=== PATIENT | male | born 1960 | race Caucasian/White ===

== ENCOUNTER 2018-10-13 16:12 | Inpatient (IN) | payer OTHER ==
[2018-10-13] MEDS ORDERED: morphine 4 MG/ML VIAL IV (16:13)
[2018-10-13] MEDS: FUROSEMIDE 20 MG INJ IV (16:13)
[2018-10-13] MEDS: ASPIRIN 325 MG TAB PO (16:13)
[2018-10-13] MEDS: ONDANSETRON 4 MG INJ IV (16:13)
[2018-10-13] MEDS: NITROGLYCERIN 50 MG/D5W (PMX) 250 ML IV (16:16)
[2018-10-13] MEDS: ALBUTEROL 0.5% (NEB) 2.5 MG/0.5 ML AMP INH (16:22)
[2018-10-13 16:23] LABS: WHITE BLOOD COUNT 28.8 10^3/ul (4.8-10.8)
[2018-10-13 16:23] LABS: ABNORMAL IP MESSAGE 1; HEMATOCRIT 37.2 % (42.0-52.0); HEMOGLOBIN 12.4 g/dl (14.0-18.0); MEAN CORPUSCULAR HEMOGLOBIN 32.7 pg (29.0-33.0); MEAN CORPUSCULAR HGB CONC 33.3 g/dl (32.0-37.0); MEAN CORPUSCULAR VOLUME 98.2 fl (82.0-101.0); MEAN PLATELET VOLUME 8.9 fl (7.4-10.4); PLATELET COUNT 290 10^3/UL (140-415); POSITIVE DIFF @See below; RED BLOOD COUNT 3.79 10^6/ul (4.70-6.10); RED CELL DISTRIBUTION WIDTH 11.9 % (11.5-14.5)
[2018-10-13] MEDS: IPRATROPIUM (NEB) 0.5 MG/2.5 ML AMP INH (16:23)
[2018-10-13 16:25] LABS: ADD MAN DIFF? YES
[2018-10-13] MEDS ORDERED: NITROGLYCERIN (SL) 0.4 MG TAB SL (16:30)
[2018-10-13] MEDS: SUCCINYLCHOLINE CHLORIDE 100 MG/5 ML SYG IV (16:31)
[2018-10-13] MEDS: ETOMIDATE 20 MG INJ IV (16:31)
[2018-10-13] MEDS ORDERED: PROPOFOL 100 ML (16:39)
[2018-10-13] MEDS ORDERED: PROPOFOL 100 ML IV (16:40)
[2018-10-13 16:43] LABS: INR 0.97; PARTIAL THROMBOPLASTIN TIME 23.3 Sec (23.0-35.0)
[2018-10-13] MEDS: SOD CHLORIDE 0.9% 1,000 ML IV (16:44)
[2018-10-13 16:45] LABS: ALANINE AMINOTRANSFERASE 50 IU/L (13-69); ALBUMIN 3.5 g/dl (3.3-4.9); ALKALINE PHOSPHATASE 90 IU/L (42-121); ANION GAP 8 (5-13); ASPARTATE AMINO TRANSFERASE 58 IU/L (15-46); BAND NEUTROPHILS #M 0.2 10^3/ul (0.0-0.6); BAND NEUTROPHILS % (M) 1 % (0-4); BILIRUBIN,INDIRECT 1.8 mg/dl (0-1.1); BILIRUBIN,TOTAL 1.8 mg/dl (0.2-1.3); BLOOD UREA NITROGEN 26 mg/dl (7-20); CALCIUM 8.5 mg/dl (8.4-10.2); CARBON DIOXIDE 37 mmol/L (21-31); CHLORIDE 95 mmol/L (97-110); CREATININE 0.82 mg/dl (0.61-1.24); Estimated GFR > 60 mL/min (>60); GLUCOSE 195 mg/dl (70-220); LYMPHOCYTES #M 1.7 10^3/ul (0.8-2.9); LYMPHOCYTES % (M) 6 % (15-51); PLATELET ESTIMATE NORMAL; POTASSIUM 4.8 mmol/L (3.5-5.1); SEG NEUT #M 26.8 10^3/ul (1.6-7.5); SEGMENTED NEUTROPHILS (M) % 93 % (39-77); SMUDGE%M 6 % (0-0); SODIUM 140 mmol/L (135-144); TOTAL PROTEIN 6.4 g/dl (6.1-8.1)
[2018-10-13] MEDS ORDERED: FENTAnyl 50 MCG/ML VIAL (16:49)
[2018-10-13] MEDS: MAGNESIUM SULFATE 2 GM/50 ML 50 ML IVPB (16:52)
[2018-10-13] MEDS: DEXAMETHASONE 10 MG/ML 1 ML INJ IV (16:53)
[2018-10-13] MEDS ORDERED: MIDAZOLAM 1 MG/ML 2 ML INJ (16:55)
[2018-10-13 16:57] LABS: B-TYPE NATRIURETIC PEPTIDE 1930 PG/ML (0-125); TROPONIN-I 0.047 ng/ml (0.000-0.120)
[2018-10-13 17:01] LABS: CREATINE KINASE 394 IU/L (23-200)
[2018-10-13] MEDS ORDERED: NORepinephrine 8MG/250 ML (PMX 250 ML (17:05)
[2018-10-13] MEDS: FENTAnyl 50 MCG/ML VIAL IV ×2 (17:06→18:34)
[2018-10-13] MEDS: MIDAZOLAM 1 MG/ML 2 ML INJ IV ×3 (17:06→18:34)
[2018-10-13 17:14] LABS: CK INDEX 1.7; CK-MB 6.57 ng/ml (0.0-2.4); TROPONIN-I 0.046 ng/ml (0.000-0.120)
[2018-10-13] MEDS: FENTAnyl (DRIP) 1000 mcg/100mL 100 ML IV (17:19)
[2018-10-13] MEDS: MIDAZOLAM (DRIP) 50 mg/50 mL 50 ML IV ×2 (17:25→21:35)
[2018-10-13] MEDS: NORepinephrine 8MG/250 ML (PMX 250 ML IV (17:30)
[2018-10-13] MEDS: SODIUM CHLORIDE 0.9% 1L BAG IV* (17:30)
[2018-10-13] MEDS: CEFEPIME 2GM/50 ML (PMX) 50 ML IVPB (17:44)
[2018-10-13] MEDS: VANCOMYCIN 1 GM (PMX) 250 ML IVPB (18:22)
[2018-10-13] MEDS ORDERED: MIDAZOLAM 1 MG/ML 5 ML INJ IV (18:30)
[2018-10-13 18:49] LABS: AADO2 Arterial 212.9 mmHg (7.0-24.0); Allen Test ACCEPTAB; Arterial Base Excess -0.5 mmol/L (-3.0-3); Arterial COHb 0.3 % (0.0-3.0); Arterial Fraction of Oxyhgb 98.4 % (93.0-99.0); Arterial MetHb 0.3 % (0.0-1.5); Arterial pCO2 67.2 mmhg (35-45); MODE VENT - AC; Site Left Radial
[2018-10-13 19:26] LABS: LACTIC ACID 2.4 mmol/L (0.5-2.0)
[2018-10-13] MEDS ORDERED: NACL 0.9% 3 ML SYG IV (19:30)
[2018-10-13 19:52] LABS: AADO2 Arterial 108.6 mmHg (7.0-24.0); Arterial Base Excess 1.8 mmol/L (-3.0-3); Arterial COHb 0.3 % (0.0-3.0); Arterial Fraction of Oxyhgb 96.4 % (93.0-99.0); Arterial HCO3 28.6 mmol/L (22.0-26.0); Arterial MetHb 0.3 % (0.0-1.5); Arterial pCO2 55.3 mmhg (35-45); MODE VENT - AC; Site Right Brachial
[2018-10-13] MEDS: LEVOFLOXACIN 750MG/D5W (PMX) 150 ML IVPB (20:04)
[2018-10-13] MEDS ORDERED: SUCCINYLCHOLINE CHLORIDE 100 MG/5 ML SYG IV (21:00)
[2018-10-13] MEDS ORDERED: ALBUTEROL/IPRATROPIUM (NEB) 3 ML AMP HHN (21:00)
[2018-10-13] MEDS ORDERED: NITROGLYCERIN (SL) 0.4 MG TAB (21:00)
[2018-10-13] MEDS ORDERED: ETOMIDATE 20 MG INJ (21:00)
[2018-10-13] MEDS: METHYLPREDNISOLONE 40 MG INJ IV (21:35)
[2018-10-13] MEDS: IPRATROPIUM (HFA) 12.9 GM INHALER INH (21:49)
[2018-10-13] MEDS: ALBUTEROL HFA 8 GM INHALER INH (21:49)
[2018-10-14 00:06] LABS: BASOPHIL # 0.1 10^3/ul (0.0-0.1); BASOPHILS % 0.2 % (0.0-2.0); EOSINOPHILS % 0.1 % (0.0-7.0); LYMPHOCYTES # 1.7 10^3/ul (0.8-2.9); LYMPHOCYTES % 5.9 % (15.0-51.0); MONOCYTE # 1.1 10^3/ul (0.3-0.9); MONOCYTES % 3.6 % (0.0-11.0); NEUTROPHIL # 25.7 10^3/ul (1.6-7.5)
[2018-10-14] MEDS: FENTAnyl (DRIP) 1000 mcg/100mL 100 ML IV ×3 (00:45→19:56)
[2018-10-14] MEDS: NORepinephrine 8MG/250 ML (PMX 250 ML IV ×2 (00:57→11:09)
[2018-10-14] MEDS: IPRATROPIUM (HFA) 12.9 GM INHALER INH ×6 (01:10→21:29)
[2018-10-14] MEDS: ALBUTEROL HFA 8 GM INHALER INH ×3 (01:10→09:06)
[2018-10-14 01:31] LABS: LACTIC ACID 1.1 mmol/L (0.5-2.0)
[2018-10-14 01:32] LABS: CREATINE KINASE 299 IU/L (23-200)
[2018-10-14 01:32] LABS: MAGNESIUM 2.6 mg/dl (1.7-2.5)
[2018-10-14 01:46] LABS: CK INDEX 3.3
[2018-10-14 01:47] LABS: CK-MB 9.72 ng/ml (0.0-2.4)
[2018-10-14] MEDS: PROPOFOL 100 ML IV ×2 (03:00→13:06)
[2018-10-14] MEDS: MIDAZOLAM (DRIP) 50 mg/50 mL 50 ML IV ×4 (03:59→19:53)
[2018-10-14] MEDS: METHYLPREDNISOLONE 40 MG INJ IV ×3 (05:21→23:17)
[2018-10-14] MEDS: FUROSEMIDE 20 MG INJ IV ×2 (05:21→18:03)
[2018-10-14 05:58] LABS: ADD MAN DIFF? NO
[2018-10-14 06:06] LABS: ABNORMAL IP MESSAGE 1; BASOPHILS % 0.1 % (0.0-2.0); HEMATOCRIT 31.9 % (42.0-52.0); HEMOGLOBIN 10.4 g/dl (14.0-18.0); LYMPHOCYTES # 0.3 10^3/ul (0.8-2.9); LYMPHOCYTES % 0.8 % (15.0-51.0); MEAN CORPUSCULAR HEMOGLOBIN 32.6 pg (29.0-33.0); MEAN CORPUSCULAR HGB CONC 32.6 g/dl (32.0-37.0); MEAN PLATELET VOLUME 9.3 fl (7.4-10.4); MONOCYTE # 0.4 10^3/ul (0.3-0.9); MONOCYTES % 1.3 % (0.0-11.0); NEUTROPHIL # 29.3 10^3/ul (1.6-7.5); NEUTROPHILS % 96.5 % (39.0-77.0); PLATELET COUNT 246 10^3/UL (140-415); POSITIVE DIFF @See below; RED BLOOD COUNT 3.19 10^6/ul (4.70-6.10); RED CELL DISTRIBUTION WIDTH 12.2 % (11.5-14.5)
[2018-10-14 06:06] LABS: WHITE BLOOD COUNT 30.4 10^3/ul (4.8-10.8)
[2018-10-14 06:43] LABS: TROPONIN-I 0.054 ng/ml (0.000-0.120)
[2018-10-14 06:44] LABS: CK-MB 8.46 ng/ml (0.0-2.4)
[2018-10-14 06:47] LABS: ALANINE AMINOTRANSFERASE 74 IU/L (13-69); ALBUMIN 2.7 g/dl (3.3-4.9); ALBUMIN/GLOBULIN RATIO 1.35; ALKALINE PHOSPHATASE 76 IU/L (42-121); ANION GAP 9 (5-13); ASPARTATE AMINO TRANSFERASE 45 IU/L (15-46); BLOOD UREA NITROGEN 24 mg/dl (7-20); CALCIUM 7.9 mg/dl (8.4-10.2); CARBON DIOXIDE 27 mmol/L (21-31); CHLORIDE 103 mmol/L (97-110); Estimated GFR > 60 mL/min (>60); GLUCOSE 222 mg/dl (70-220); POTASSIUM 4.8 mmol/L (3.5-5.1); SODIUM 139 mmol/L (135-144); TOTAL PROTEIN 4.7 g/dl (6.1-8.1)
[2018-10-14 06:57] LABS: CK INDEX 3.6; CREATINE KINASE 233 IU/L (23-200)
[2018-10-14 07:45] LABS: HEMOGLOBIN A1C 8.1 % (0-5.9)
[2018-10-14 07:55] LABS: AADO2 Arterial 89.8 mmHg (7.0-24.0); Allen Test ACCEPTAB; Arterial Base Excess 2.1 mmol/L (-3.0-3); Arterial Blood Gas Oxygen Sat 91.4 mmHG (95.0-98.0); Arterial COHb 0.3 % (0.0-3.0); Arterial Fraction of Oxyhgb 90.8 % (93.0-99.0); Arterial MetHb 0.4 % (0.0-1.5); Arterial pCO2 49.2 mmhg (35-45); MODE VENT - AC; Site Left Radial
[2018-10-14] MEDS ORDERED: ALBUTEROL HFA 8 GM INHALER INH (11:00)
[2018-10-14] MEDS ORDERED: VANCOMYCIN IV PER PHARMACY XX (11:30)
[2018-10-14] MEDS: CEFEPIME 2GM/50 ML (PMX) 50 ML IVPB ×2 (13:38→21:27)
[2018-10-14 14:18] LABS: ADD UMIC NO; UR ASCORBIC ACID NEGATIVE (NEGATIVE); UR BILIRUBIN (Dip) NEGATIVE (NEGATIVE); UR BLOOD (Dip) NEGATIVE (NEGATIVE); UR CLARITY SLIGHTLY CLOUDY (CLEAR); UR COLOR YELLOW (YELLOW); UR GLUCOSE (Dip) NEGATIVE (NEGATIVE); UR KETONES (Dip) 1+ mg/dL (NEGATIVE); UR LEUKOCYTE ESTERASE (Dip) NEGATIVE Leu/ul (NEGATIVE); UR MUCUS FEW /HPF (NONE SEEN); UR NITRITE (Dip) NEGATIVE (NEGATIVE); UR RBC 0 /HPF (0-5); UR SPECIFIC GRAVITY (Dip) 1.017 (1.003-1.030); UR TOTAL PROTEIN (Dip) NEGATIVE (NEGATIVE); UR UROBILINOGEN (Dip) NEGATIVE (NEGATIVE); UR WBC 0 /HPF (0-5)
[2018-10-14] MEDS ORDERED: GLUCAGON 1 MG INJ IM (15:00)
[2018-10-14] MEDS ORDERED: DEXTROSE 50% 50 ML SYRINGE IV ×2 (15:00)
[2018-10-14] MEDS ORDERED: GLUCOSE GEL 15 GRAM TUBE BUCCAL (15:00)
[2018-10-14] MEDS ORDERED: GLUCOSE GEL 15 GRAM TUBE PO ×2 (15:00)
[2018-10-14] MEDS: VANCOMYCIN HCL 1.25 GM in SOD CHLORIDE 0.9% 250 ML IVPB (16:03)
[2018-10-14] MEDS: INSULIN ASPART [NOVOLOG] 3 ML PEN SC ×2 (18:01→21:36)
[2018-10-14] MEDS ORDERED: ADENOSINE 3 MG/ML SYRINGE IV (20:29)
[2018-10-14] MEDS ORDERED: AMIODARONE 150MG/D5W BOLUS 100 ML (20:31)
[2018-10-14] MEDS: AMIODARONE 900 MG in DEXTROSE 5% 482 ML IV (20:59)
[2018-10-14 21:08] LABS: ANION GAP 4 (5-13); BLOOD UREA NITROGEN 28 mg/dl (7-20); CALCIUM 8.1 mg/dl (8.4-10.2); CARBON DIOXIDE 31 mmol/L (21-31); CHLORIDE 105 mmol/L (97-110); CREATININE 0.88 mg/dl (0.61-1.24); Estimated GFR > 60 mL/min (>60); GLUCOSE 259 mg/dl (70-220); MAGNESIUM 2.5 mg/dl (1.7-2.5); POTASSIUM 4.8 mmol/L (3.5-5.1); SODIUM 140 mmol/L (135-144)
[2018-10-14] MEDS: AMIODARONE 150MG/D5W BOLUS 100 ML IV (21:08)
[2018-10-14 21:18] LABS: TROPONIN-I 0.066 ng/ml (0.000-0.120)
[2018-10-14 21:20] LABS: CK-MB 5.63 ng/ml (0.0-2.4)
[2018-10-14] MEDS: ATORVASTATIN 20 MG TAB PO (21:25)
[2018-10-14] MEDS: INSULIN GLARGINE [LANTus] (100 UNITS/ML) SYG SC (21:36)
[2018-10-14] MEDS: PHENYLephrine 20MG IN 250 ML 250 ML IV (21:36)
[2018-10-15] MEDS: PROPOFOL 100 ML IV ×3 (00:33→17:59)
[2018-10-15] MEDS: IPRATROPIUM (HFA) 12.9 GM INHALER INH ×6 (01:12→21:37)
[2018-10-15] MEDS: ACCU-CHEK XX (01:33)
[2018-10-15] MEDS: VANCOMYCIN HCL 1.25 GM in SOD CHLORIDE 0.9% 250 ML IVPB ×2 (01:46→14:58)
[2018-10-15] MEDS: PHENYLephrine 20MG IN 250 ML 250 ML IV ×4 (01:49→19:33)
[2018-10-15] MEDS: FUROSEMIDE 20 MG INJ IV ×2 (05:09→18:01)
[2018-10-15] MEDS: METHYLPREDNISOLONE 40 MG INJ IV ×3 (05:11→21:54)
[2018-10-15 05:24] LABS: ADD MAN DIFF? NO
[2018-10-15 05:30] LABS: ABNORMAL IP MESSAGE 1; BASOPHILS % 0.1 % (0.0-2.0); HEMATOCRIT 26.4 % (42.0-52.0); HEMOGLOBIN 8.7 g/dl (14.0-18.0); LYMPHOCYTES # 0.3 10^3/ul (0.8-2.9); LYMPHOCYTES % 1.7 % (15.0-51.0); MEAN PLATELET VOLUME 9.3 fl (7.4-10.4); MONOCYTE # 0.8 10^3/ul (0.3-0.9); MONOCYTES % 3.9 % (0.0-11.0); NEUTROPHIL # 18.8 10^3/ul (1.6-7.5); PLATELET COUNT 211 10^3/UL (140-415); POSITIVE DIFF @See below; RED BLOOD COUNT 2.64 10^6/ul (4.70-6.10); RED CELL DISTRIBUTION WIDTH 12.5 % (11.5-14.5)
[2018-10-15 05:30] LABS: WHITE BLOOD COUNT 20.2 10^3/ul (4.8-10.8)
[2018-10-15 06:01] LABS: MAGNESIUM 2.6 mg/dl (1.7-2.5)
[2018-10-15 06:01] LABS: PHOSPHORUS 2.7 mg/dl (2.5-4.9)
[2018-10-15 06:07] LABS: CREATINE KINASE 75 IU/L (23-200)
[2018-10-15 06:10] LABS: ALANINE AMINOTRANSFERASE 51 IU/L (13-69); ALBUMIN 2.6 g/dl (3.3-4.9); ALBUMIN/GLOBULIN RATIO 1.18; ALKALINE PHOSPHATASE 64 IU/L (42-121); ANION GAP 3 (5-13); ASPARTATE AMINO TRANSFERASE 21 IU/L (15-46); BILIRUBIN,INDIRECT 0.6 mg/dl (0-1.1); BILIRUBIN,TOTAL 0.6 mg/dl (0.2-1.3); BLOOD UREA NITROGEN 31 mg/dl (7-20); CALCIUM 8.2 mg/dl (8.4-10.2); CARBON DIOXIDE 33 mmol/L (21-31); CHLORIDE 105 mmol/L (97-110); CREATININE 0.93 mg/dl (0.61-1.24); Estimated GFR > 60 mL/min (>60); GLUCOSE 235 mg/dl (70-220); POTASSIUM 4.4 mmol/L (3.5-5.1); SODIUM 141 mmol/L (135-144); TOTAL PROTEIN 4.8 g/dl (6.1-8.1)
[2018-10-15 07:46] LABS: AADO2 Arterial 143.4 mmHg (7.0-24.0); Allen Test ACCEPTAB; Arterial Base Excess 4.3 mmol/L (-3.0-3); Arterial Blood Gas Oxygen Sat 98.8 mmHG (95.0-98.0); Arterial COHb 0.2 % (0.0-3.0); Arterial Fraction of Oxyhgb 98.2 % (93.0-99.0); Arterial HCO3 29.7 mmol/L (22.0-26.0); Arterial MetHb 0.4 % (0.0-1.5); Arterial pCO2 48.6 mmhg (35-45); MODE VENT - AC; Site Right Radial
[2018-10-15] MEDS: INSULIN ASPART [NOVOLOG] 3 ML PEN SC ×4 (08:07→20:31)
[2018-10-15] MEDS: CEFEPIME 2GM/50 ML (PMX) 50 ML IVPB ×2 (09:17→20:26)
[2018-10-15 17:43] LABS: PROCALCITONIN 0.63 ng/mL (0.00-0.10)
[2018-10-15] MEDS: INSULIN GLARGINE [LANTus] (100 UNITS/ML) SYG SC (20:31)
[2018-10-15] MEDS: ATORVASTATIN 20 MG TAB PO (20:33)
[2018-10-16] MEDS: PHENYLephrine 20MG IN 250 ML 250 ML IV ×3 (00:39→19:45)
[2018-10-16] MEDS: IPRATROPIUM (HFA) 12.9 GM INHALER INH ×6 (01:16→22:00)
[2018-10-16 01:27] LABS: VANCOMYCIN,TROUGH 17.6 ug/ml (10.0-20.0)
[2018-10-16] MEDS: VANCOMYCIN HCL 1.25 GM in SOD CHLORIDE 0.9% 250 ML IVPB ×2 (01:56→15:13)
[2018-10-16] MEDS: PROPOFOL 100 ML IV ×3 (02:00→22:45)
[2018-10-16] MEDS: ACCU-CHEK XX (02:00)
[2018-10-16 05:28] LABS: WHITE BLOOD COUNT 16.7 10^3/ul (4.8-10.8)
[2018-10-16 05:28] LABS: ABNORMAL IP MESSAGE 1; ADD MAN DIFF? NO; BASOPHILS % 0.1 % (0.0-2.0); HEMATOCRIT 25.6 % (42.0-52.0); HEMOGLOBIN 8.4 g/dl (14.0-18.0); LYMPHOCYTES # 0.3 10^3/ul (0.8-2.9); LYMPHOCYTES % 1.6 % (15.0-51.0); MEAN CORPUSCULAR HEMOGLOBIN 32.9 pg (29.0-33.0); MEAN CORPUSCULAR HGB CONC 32.8 g/dl (32.0-37.0); MEAN CORPUSCULAR VOLUME 100.4 fl (82.0-101.0); MEAN PLATELET VOLUME 9.3 fl (7.4-10.4); MONOCYTE # 0.3 10^3/ul (0.3-0.9); MONOCYTES % 1.9 % (0.0-11.0); NEUTROPHIL # 15.9 10^3/ul (1.6-7.5); NEUTROPHILS % 95.3 % (39.0-77.0); PLATELET COUNT 216 10^3/UL (140-415); POSITIVE DIFF @See below; RED BLOOD COUNT 2.55 10^6/ul (4.70-6.10); RED CELL DISTRIBUTION WIDTH 12.7 % (11.5-14.5)
[2018-10-16 05:53] LABS: ALANINE AMINOTRANSFERASE 47 IU/L (13-69); ALBUMIN 2.5 g/dl (3.3-4.9); ALBUMIN/GLOBULIN RATIO 1.04; ALKALINE PHOSPHATASE 64 IU/L (42-121); ANION GAP 4 (5-13); ASPARTATE AMINO TRANSFERASE 20 IU/L (15-46); BILIRUBIN,INDIRECT 0.7 mg/dl (0-1.1); BILIRUBIN,TOTAL 0.7 mg/dl (0.2-1.3); BLOOD UREA NITROGEN 34 mg/dl (7-20); CALCIUM 8.2 mg/dl (8.4-10.2); CARBON DIOXIDE 34 mmol/L (21-31); CHLORIDE 106 mmol/L (97-110); CREATININE 0.78 mg/dl (0.61-1.24); Estimated GFR > 60 mL/min (>60); GLUCOSE 208 mg/dl (70-220); POTASSIUM 4.4 mmol/L (3.5-5.1); SODIUM 144 mmol/L (135-144); TOTAL PROTEIN 4.9 g/dl (6.1-8.1)
[2018-10-16] MEDS: METHYLPREDNISOLONE 40 MG INJ IV ×3 (05:58→22:40)
[2018-10-16] MEDS: FUROSEMIDE 20 MG INJ IV ×2 (06:00→18:18)
[2018-10-16 06:04] LABS: MAGNESIUM 2.5 mg/dl (1.7-2.5)
[2018-10-16 06:04] LABS: PHOSPHORUS 2.5 mg/dl (2.5-4.9)
[2018-10-16] MEDS: INSULIN ASPART [NOVOLOG] 3 ML PEN SC ×4 (08:26→20:27)
[2018-10-16] MEDS: CEFEPIME 2GM/50 ML (PMX) 50 ML IVPB ×2 (09:28→20:11)
[2018-10-16] MEDS: DEXMEDETOMIDINE HCL 200 MCG in SOD CHLORIDE 0.9% 48 ML IV (10:18)
[2018-10-16] MEDS ORDERED: LIDOCAINE 1% (MDV) 20 ML INJ (12:27)
[2018-10-16] MEDS: ATORVASTATIN 20 MG TAB PO (20:11)
[2018-10-16] MEDS: INSULIN GLARGINE [LANTus] (100 UNITS/ML) SYG SC (20:25)
[2018-10-17] MEDS: ACCU-CHEK XX (01:40)
[2018-10-17] MEDS: IPRATROPIUM (HFA) 12.9 GM INHALER INH ×6 (01:55→21:20)
[2018-10-17] MEDS: VANCOMYCIN 1 GM 250 ML IVPB ×2 (04:22→15:40)
[2018-10-17 05:09] LABS: ADD MAN DIFF? NO
[2018-10-17 05:17] LABS: WHITE BLOOD COUNT 11.7 10^3/ul (4.8-10.8)
[2018-10-17 05:17] LABS: ABNORMAL IP MESSAGE 1; BASOPHILS % 0.1 % (0.0-2.0); HEMOGLOBIN 8.5 g/dl (14.0-18.0); LYMPHOCYTES # 0.4 10^3/ul (0.8-2.9); MEAN CORPUSCULAR HEMOGLOBIN 32.3 pg (29.0-33.0); MEAN CORPUSCULAR HGB CONC 32.7 g/dl (32.0-37.0); MEAN CORPUSCULAR VOLUME 98.9 fl (82.0-101.0); MEAN PLATELET VOLUME 9.4 fl (7.4-10.4); MONOCYTE # 0.3 10^3/ul (0.3-0.9); MONOCYTES % 2.8 % (0.0-11.0); NEUTROPHILS % 93.4 % (39.0-77.0); PLATELET COUNT 204 10^3/UL (140-415); POSITIVE DIFF @See below; RED BLOOD COUNT 2.63 10^6/ul (4.70-6.10); RED CELL DISTRIBUTION WIDTH 12.9 % (11.5-14.5)
[2018-10-17] MEDS: METHYLPREDNISOLONE 40 MG INJ IV (05:22)
[2018-10-17] MEDS: FUROSEMIDE 20 MG INJ IV (05:23)
[2018-10-17] MEDS: PHENYLephrine 20MG IN 250 ML 250 ML IV ×2 (05:32→15:41)
[2018-10-17 05:34] LABS: PHOSPHORUS 2.9 mg/dl (2.5-4.9)
[2018-10-17 05:34] LABS: MAGNESIUM 2.5 mg/dl (1.7-2.5)
[2018-10-17 05:41] LABS: ALANINE AMINOTRANSFERASE 40 IU/L (13-69); ALBUMIN 2.6 g/dl (3.3-4.9); ALBUMIN/GLOBULIN RATIO 0.96; ALKALINE PHOSPHATASE 69 IU/L (42-121); ANION GAP 2 (5-13); ASPARTATE AMINO TRANSFERASE 16 IU/L (15-46); BILIRUBIN,INDIRECT 0.6 mg/dl (0-1.1); BILIRUBIN,TOTAL 0.6 mg/dl (0.2-1.3); BLOOD UREA NITROGEN 40 mg/dl (7-20); CALCIUM 8.2 mg/dl (8.4-10.2); CARBON DIOXIDE 35 mmol/L (21-31); CHLORIDE 106 mmol/L (97-110); CREATININE 0.79 mg/dl (0.61-1.24); Estimated GFR > 60 mL/min (>60); GLUCOSE 155 mg/dl (70-220); POTASSIUM 4.1 mmol/L (3.5-5.1); SODIUM 143 mmol/L (135-144); TOTAL PROTEIN 5.3 g/dl (6.1-8.1)
[2018-10-17] MEDS: PROPOFOL 100 ML IV ×3 (06:50→23:39)
[2018-10-17] MEDS: INSULIN ASPART [NOVOLOG] 3 ML PEN SC ×5 (07:35→21:03)
[2018-10-17 08:11] LABS: AADO2 Arterial 107.4 mmHg (7.0-24.0); Allen Test ACCEPTAB; Arterial Base Excess 7.5 mmol/L (-3.0-3); Arterial Blood Gas Oxygen Sat 95.8 mmHG (95.0-98.0); Arterial COHb 0.2 % (0.0-3.0); Arterial Fraction of Oxyhgb 95.3 % (93.0-99.0); Arterial HCO3 32.5 mmol/L (22.0-26.0); Arterial MetHb 0.3 % (0.0-1.5); Arterial pCO2 48.1 mmhg (35-45); MODE VENT - AC; Site Right Radial
[2018-10-17] MEDS: DEXMEDETOMIDINE HCL 200 MCG in SOD CHLORIDE 0.9% 48 ML IV ×5 (10:08→22:31)
[2018-10-17] MEDS: CEFEPIME 2GM/50 ML (PMX) 50 ML IVPB ×2 (10:08→20:14)
[2018-10-17] MEDS: FAMOTIDINE 20 MG INJ IV (10:08)
[2018-10-17 10:58] LABS: TROPONIN-I 0.045 ng/ml (0.000-0.120)
[2018-10-17] MEDS: FENTAnyl (DRIP) 1000 mcg/100mL 100 ML IV (12:53)
[2018-10-17] MEDS: FUROSEMIDE 20 MG TAB PO (18:14)
[2018-10-17] MEDS: INSULIN GLARGINE [LANTus] (100 UNITS/ML) SYG SC (19:46)
[2018-10-17] MEDS: ATORVASTATIN 20 MG TAB PO (20:14)
[2018-10-17] MEDS: ACETAMINOPHEN 650MG/20.3ML CUP NGT (22:10)
[2018-10-18] MEDS: INSULIN ASPART [NOVOLOG] 3 ML PEN SC ×6 (00:29→21:29)
[2018-10-18] MEDS: IPRATROPIUM (HFA) 12.9 GM INHALER INH ×6 (01:20→20:00)
[2018-10-18] MEDS: VANCOMYCIN 1 GM 250 ML IVPB ×2 (02:09→14:58)
[2018-10-18] MEDS: DEXMEDETOMIDINE HCL 200 MCG in SOD CHLORIDE 0.9% 48 ML IV ×4 (02:09→12:49)
[2018-10-18] MEDS: ACETAMINOPHEN 650MG/20.3ML CUP NGT (04:21)
[2018-10-18] MEDS: FENTAnyl (DRIP) 1000 mcg/100mL 100 ML IV (04:24)
[2018-10-18] MEDS: FUROSEMIDE 20 MG TAB PO (05:13)
[2018-10-18 05:14] LABS: ADD MAN DIFF? NO
[2018-10-18 05:20] LABS: BASOPHILS % 0.1 % (0.0-2.0); EOSINOPHILS % 0.1 % (0.0-7.0); HEMATOCRIT 26.4 % (42.0-52.0); HEMOGLOBIN 8.5 g/dl (14.0-18.0); LYMPHOCYTES # 0.6 10^3/ul (0.8-2.9); LYMPHOCYTES % 6.7 % (15.0-51.0); MEAN CORPUSCULAR HEMOGLOBIN 32.3 pg (29.0-33.0); MEAN CORPUSCULAR HGB CONC 32.2 g/dl (32.0-37.0); MEAN CORPUSCULAR VOLUME 100.4 fl (82.0-101.0); MEAN PLATELET VOLUME 9.4 fl (7.4-10.4); MONOCYTE # 0.5 10^3/ul (0.3-0.9); NEUTROPHILS % 86.7 % (39.0-77.0); NUCLEATED RED BLOOD CELLS% 0.4 /100WBC (0.0-0.0); PLATELET COUNT 232 10^3/UL (140-415); RED BLOOD COUNT 2.63 10^6/ul (4.70-6.10); RED CELL DISTRIBUTION WIDTH 12.7 % (11.5-14.5)
[2018-10-18 05:20] LABS: WHITE BLOOD COUNT 9.2 10^3/ul (4.8-10.8)
[2018-10-18 05:45] LABS: ANION GAP 2 (5-13); BLOOD UREA NITROGEN 46 mg/dl (7-20); CALCIUM 8.2 mg/dl (8.4-10.2); CARBON DIOXIDE 35 mmol/L (21-31); CHLORIDE 107 mmol/L (97-110); CREATININE 0.94 mg/dl (0.61-1.24); Estimated GFR > 60 mL/min (>60); GLUCOSE 125 mg/dl (70-220); SODIUM 144 mmol/L (135-144)
[2018-10-18 05:48] LABS: MAGNESIUM 2.5 mg/dl (1.7-2.5)
[2018-10-18 05:48] LABS: PHOSPHORUS 2.6 mg/dl (2.5-4.9)
[2018-10-18] MEDS: PROPOFOL 100 ML IV ×3 (08:31→20:02)
[2018-10-18] MEDS: CEFEPIME 2GM/50 ML (PMX) 50 ML IVPB ×2 (08:32→20:15)
[2018-10-18] MEDS: predniSONE 20 MG TAB PO (08:32)
[2018-10-18] MEDS: FAMOTIDINE 20 MG INJ IV (08:32)
[2018-10-18] MEDS ORDERED: SILDENAFIL 100 MG TAB PO (11:00)
[2018-10-18] MEDS: DABIGATRAN 150 MG CAP PO (11:00)
[2018-10-18] MEDS ORDERED: DOCUSATE SODIUM 100 MG CAP PO (11:00)
[2018-10-18] MEDS: NON-FORMULARY/PATIENT OWN MED (Lurasidone Hcl (Latuda) 40 MG) PO (11:00)
[2018-10-18] MEDS ORDERED: ENOXAPARIN 100 MG/ML SYG SC (11:30)
[2018-10-18] MEDS: DOCUSATE SODIUM 10 MG/ML (10ML CUP) NGT ×2 (12:49→20:15)
[2018-10-18] MEDS: ENOXAPARIN 100 MG/ML SYG SC ×2 (12:54→23:32)
[2018-10-18 14:36] LABS: VANCOMYCIN,TROUGH 19.6 ug/ml (10.0-20.0)
[2018-10-18] MEDS: FUROSEMIDE 20 MG TAB NGT (18:13)
[2018-10-18] MEDS: PHENYLephrine 20MG IN 250 ML 250 ML IV (18:33)
[2018-10-18] MEDS: INSULIN GLARGINE [LANTus] (100 UNITS/ML) SYG SC (19:38)
[2018-10-18] MEDS: traZODone 50 MG TAB NGT (20:15)
[2018-10-18] MEDS: ATORVASTATIN 20 MG TAB NGT (20:16)
[2018-10-18] MEDS ORDERED: traZODone 50 MG TAB PO (21:00)
[2018-10-19] MEDS: INSULIN ASPART [NOVOLOG] 3 ML PEN SC ×6 (01:06→21:09)
[2018-10-19] MEDS: PROPOFOL 100 ML IV ×6 (01:08→23:26)
[2018-10-19] MEDS: IPRATROPIUM (HFA) 12.9 GM INHALER INH ×6 (01:21→21:35)
[2018-10-19] MEDS: VANCOMYCIN HCL 1.25 GM in SOD CHLORIDE 0.9% 250 ML IVPB (01:50)
[2018-10-19] MEDS: FENTAnyl (DRIP) 1000 mcg/100mL 100 ML IV ×2 (01:58→23:29)
[2018-10-19] MEDS: PHENYLephrine 20MG IN 250 ML 250 ML IV ×5 (05:05→23:29)
[2018-10-19 05:33] LABS: ADD MAN DIFF? NO
[2018-10-19] MEDS: FUROSEMIDE 20 MG TAB NGT ×2 (05:38→18:39)
[2018-10-19 05:42] LABS: WHITE BLOOD COUNT 11.5 10^3/ul (4.8-10.8)
[2018-10-19 05:42] LABS: BASOPHILS % 0.3 % (0.0-2.0); EOSINOPHILS # 0.1 10^3/ul (0.0-0.5); EOSINOPHILS % 1.1 % (0.0-7.0); LYMPHOCYTES # 0.8 10^3/ul (0.8-2.9); LYMPHOCYTES % 7.2 % (15.0-51.0); MEAN CORPUSCULAR HEMOGLOBIN 32.4 pg (29.0-33.0); MEAN CORPUSCULAR HGB CONC 32.1 g/dl (32.0-37.0); MEAN CORPUSCULAR VOLUME 100.7 fl (82.0-101.0); MEAN PLATELET VOLUME 9.7 fl (7.4-10.4); MONOCYTE # 0.5 10^3/ul (0.3-0.9); MONOCYTES % 4.2 % (0.0-11.0); NEUTROPHIL # 9.8 10^3/ul (1.6-7.5); NEUTROPHILS % 85.2 % (39.0-77.0); NUCLEATED RED BLOOD CELLS # 0.1 10^3/ul (0.0-0.0); NUCLEATED RED BLOOD CELLS% 0.4 /100WBC (0.0-0.0); PLATELET COUNT 265 10^3/UL (140-415); RED BLOOD COUNT 2.78 10^6/ul (4.70-6.10); RED CELL DISTRIBUTION WIDTH 12.5 % (11.5-14.5)
[2018-10-19 06:02] LABS: ANION GAP 4 (5-13); BLOOD UREA NITROGEN 45 mg/dl (7-20); CALCIUM 8.1 mg/dl (8.4-10.2); CARBON DIOXIDE 35 mmol/L (21-31); CHLORIDE 103 mmol/L (97-110); CREATININE 0.72 mg/dl (0.61-1.24); Estimated GFR > 60 mL/min (>60); GLUCOSE 145 mg/dl (70-220); MAGNESIUM 2.6 mg/dl (1.7-2.5); PHOSPHORUS 3.3 mg/dl (2.5-4.9); POTASSIUM 3.8 mmol/L (3.5-5.1); SODIUM 142 mmol/L (135-144)
[2018-10-19] MEDS: CEFEPIME 2GM/50 ML (PMX) 50 ML IVPB ×2 (08:47→21:12)
[2018-10-19] MEDS: predniSONE 20 MG TAB NGT (08:47)
[2018-10-19] MEDS: DOCUSATE SODIUM 10 MG/ML (10ML CUP) NGT ×2 (08:47→21:02)
[2018-10-19] MEDS: FAMOTIDINE 20 MG INJ IV (08:51)
[2018-10-19] MEDS ORDERED: NON-FORMULARY/PATIENT OWN MED (Lurasidone Hcl (Latuda) 40 MG) NGT (09:00)
[2018-10-19] MEDS: predniSONE 20 MG TAB PO (11:30)
[2018-10-19] MEDS ORDERED: LORAZEPAM 2 MG INJ IV (11:30)
[2018-10-19] MEDS ORDERED: IMATINIB 100 MG PO (12:00)
[2018-10-19] MEDS: ENOXAPARIN 100 MG/ML SYG SC ×2 (13:30→23:28)
[2018-10-19] MEDS ORDERED: IMATINIB 400 MG TAB PO (14:00)
[2018-10-19] MEDS: traZODone 50 MG TAB NGT (21:03)
[2018-10-19] MEDS: ATORVASTATIN 20 MG TAB NGT (21:03)
[2018-10-19] MEDS: INSULIN GLARGINE [LANTus] (100 UNITS/ML) SYG SC (21:09)
[2018-10-20] MEDS: IPRATROPIUM (HFA) 12.9 GM INHALER INH ×6 (01:18→21:30)
[2018-10-20] MEDS: PHENYLephrine 20MG IN 250 ML 250 ML IV ×4 (02:09→11:38)
[2018-10-20] MEDS: NORepinephrine 8MG/250 ML (PMX 250 ML IV (02:09)
[2018-10-20] MEDS: VANCOMYCIN HCL 1.25 GM in SOD CHLORIDE 0.9% 250 ML IVPB (02:23)
[2018-10-20] MEDS: INSULIN ASPART [NOVOLOG] 3 ML PEN SC ×6 (02:27→21:17)
[2018-10-20] MEDS: PROPOFOL 100 ML IV ×3 (04:55→17:26)
[2018-10-20 05:20] LABS: ADD MAN DIFF? NO
[2018-10-20 05:35] LABS: WHITE BLOOD COUNT 10.3 10^3/ul (4.8-10.8)
[2018-10-20 05:35] LABS: BASOPHILS % 0.2 % (0.0-2.0); EOSINOPHILS # 0.2 10^3/ul (0.0-0.5); EOSINOPHILS % 2.1 % (0.0-7.0); HEMATOCRIT 25.3 % (42.0-52.0); HEMOGLOBIN 8.3 g/dl (14.0-18.0); LYMPHOCYTES # 1.2 10^3/ul (0.8-2.9); LYMPHOCYTES % 11.2 % (15.0-51.0); MEAN CORPUSCULAR HEMOGLOBIN 32.7 pg (29.0-33.0); MEAN CORPUSCULAR HGB CONC 32.8 g/dl (32.0-37.0); MEAN CORPUSCULAR VOLUME 99.6 fl (82.0-101.0); MEAN PLATELET VOLUME 9.7 fl (7.4-10.4); MONOCYTE # 0.4 10^3/ul (0.3-0.9); MONOCYTES % 3.6 % (0.0-11.0); NEUTROPHILS % 78.3 % (39.0-77.0); NUCLEATED RED BLOOD CELLS # 0.1 10^3/ul (0.0-0.0); NUCLEATED RED BLOOD CELLS% 0.6 /100WBC (0.0-0.0); PLATELET COUNT 272 10^3/UL (140-415); RED BLOOD COUNT 2.54 10^6/ul (4.70-6.10); RED CELL DISTRIBUTION WIDTH 12.5 % (11.5-14.5)
[2018-10-20 05:49] LABS: ANION GAP 3 (5-13); BLOOD UREA NITROGEN 36 mg/dl (7-20); CALCIUM 7.8 mg/dl (8.4-10.2); CARBON DIOXIDE 34 mmol/L (21-31); CHLORIDE 103 mmol/L (97-110); CREATININE 0.69 mg/dl (0.61-1.24); Estimated GFR > 60 mL/min (>60); GLUCOSE 153 mg/dl (70-220); POTASSIUM 3.9 mmol/L (3.5-5.1); SODIUM 140 mmol/L (135-144)
[2018-10-20] MEDS: FUROSEMIDE 20 MG TAB NGT ×2 (05:55→17:36)
[2018-10-20 07:44] LABS: PHOSPHORUS 2.8 mg/dl (2.5-4.9)
[2018-10-20 07:44] LABS: MAGNESIUM 2.5 mg/dl (1.7-2.5)
[2018-10-20] MEDS: CEFEPIME 2GM/50 ML (PMX) 50 ML IVPB ×2 (08:05→21:15)
[2018-10-20] MEDS: DOCUSATE SODIUM 10 MG/ML (10ML CUP) NGT ×2 (08:05→21:15)
[2018-10-20] MEDS: FAMOTIDINE 20 MG INJ IV (08:05)
[2018-10-20] MEDS: predniSONE 20 MG TAB NGT (08:11)
[2018-10-20] MEDS: ENOXAPARIN 100 MG/ML SYG SC ×2 (11:07→23:30)
[2018-10-20] MEDS ORDERED: MIDAZOLAM (DRIP) 50 mg/50 mL 50 ML IV (14:00)
[2018-10-20] MEDS: PHENYLephrine 40 MG in DEXTROSE 5% 246 ML IV ×2 (15:56→23:31)
[2018-10-20] MEDS: FENTAnyl (DRIP) 1000 mcg/100mL 100 ML IV (15:57)
[2018-10-20] MEDS: ATORVASTATIN 20 MG TAB NGT (21:15)
[2018-10-20] MEDS: traZODone 50 MG TAB NGT (21:15)
[2018-10-20] MEDS: INSULIN GLARGINE [LANTus] (100 UNITS/ML) SYG SC (21:17)
[2018-10-21] MEDS: IPRATROPIUM (HFA) 12.9 GM INHALER INH ×6 (01:00→21:22)
[2018-10-21] MEDS: VANCOMYCIN HCL 1.25 GM in SOD CHLORIDE 0.9% 250 ML IVPB (01:03)
[2018-10-21] MEDS: INSULIN ASPART [NOVOLOG] 3 ML PEN SC ×6 (01:10→20:33)
[2018-10-21] MEDS: FUROSEMIDE 20 MG TAB NGT ×2 (05:14→17:26)
[2018-10-21] MEDS: PROPOFOL 100 ML IV ×5 (05:15→22:00)
[2018-10-21] MEDS: MIDAZOLAM (DRIP) 50 mg/50 mL 50 ML IV (05:23)
[2018-10-21 05:25] LABS: ABNORMAL IP MESSAGE 1; HEMOGLOBIN 8.1 g/dl (14.0-18.0); MEAN CORPUSCULAR HEMOGLOBIN 31.9 pg (29.0-33.0); MEAN CORPUSCULAR HGB CONC 32.4 g/dl (32.0-37.0); MEAN CORPUSCULAR VOLUME 98.4 fl (82.0-101.0); MEAN PLATELET VOLUME 9.9 fl (7.4-10.4); NUCLEATED RED BLOOD CELLS% 1.1 /100WBC (0.0-0.0); PLATELET COUNT 318 10^3/UL (140-415); POSITIVE DIFF @See below; RED BLOOD COUNT 2.54 10^6/ul (4.70-6.10); RED CELL DISTRIBUTION WIDTH 12.6 % (11.5-14.5)
[2018-10-21 05:25] LABS: WHITE BLOOD COUNT 8.2 10^3/ul (4.8-10.8)
[2018-10-21] MEDS: PHENYLephrine 40 MG in DEXTROSE 5% 246 ML IV ×5 (05:25→20:14)
[2018-10-21 05:32] LABS: ADD MAN DIFF? YES
[2018-10-21 05:34] LABS: ANION GAP 3 (5-13); BLOOD UREA NITROGEN 31 mg/dl (7-20); CALCIUM 8.1 mg/dl (8.4-10.2); CARBON DIOXIDE 35 mmol/L (21-31); CHLORIDE 100 mmol/L (97-110); CREATININE 0.79 mg/dl (0.61-1.24); Estimated GFR > 60 mL/min (>60); GLUCOSE 159 mg/dl (70-220); POTASSIUM 3.9 mmol/L (3.5-5.1); SODIUM 138 mmol/L (135-144)
[2018-10-21 06:28] LABS: MAGNESIUM 2.3 mg/dl (1.7-2.5)
[2018-10-21 06:28] LABS: PHOSPHORUS 2.8 mg/dl (2.5-4.9)
[2018-10-21 07:13] LABS: ANISOCYTOSIS 1+ (0-0); EOSINOPHILS % (M) 6 % (0-7); ERYTHROBLAST% (NRBC) (M) 1 % (0-0); GIANT THROMBO% (M) 1 % (0-0); LYMPHOCYTES #M 0.4 10^3/ul (0.8-2.9); LYMPHOCYTES % (M) 5 % (15-51); METAMYELOCYTES %M 1 % (0-0); MICROCYTOSIS 1+ (0-0); MONOCYTE #M 0.3 10^3/ul (0.3-0.9); MONOCYTES % (M) 4 % (0-11); PLATELET ESTIMATE NORMAL; POLYCHROMASIA 1+ (0-0); SEGMENTED NEUTROPHILS (M) % 84 % (39-77); SMUDGE%M 7 % (0-0)
[2018-10-21] MEDS: FENTAnyl (DRIP) 1000 mcg/100mL 100 ML IV ×2 (07:34→10:42)
[2018-10-21] MEDS: CEFEPIME 2GM/50 ML (PMX) 50 ML IVPB ×2 (08:21→20:31)
[2018-10-21] MEDS: DOCUSATE SODIUM 10 MG/ML (10ML CUP) NGT ×2 (08:21→20:31)
[2018-10-21] MEDS: FAMOTIDINE 20 MG INJ IV (08:21)
[2018-10-21] MEDS: ENOXAPARIN 100 MG/ML SYG SC (11:00)
[2018-10-21 11:59] LABS: AADO2 Arterial 26.9 mmHg (7.0-24.0); Allen Test ACCEPTAB; Arterial Base Excess 6.5 mmol/L (-3.0-3); Arterial Blood Gas Oxygen Sat 97.8 mmHG (95.0-98.0); Arterial COHb 0.3 % (0.0-3.0); Arterial Fraction of Oxyhgb 97.5 % (93.0-99.0); Arterial MetHb 0 % (0.0-1.5); MODE VENT - AC; Site Left Radial
[2018-10-21] MEDS ORDERED: morphine 4 MG/ML VIAL (13:15)
[2018-10-21] MEDS ORDERED: LIDOCAINE 1% (MDV) 20 ML INJ (13:15)
[2018-10-21] MEDS ORDERED: morphine 2 MG INJ (13:16)
[2018-10-21] MEDS ORDERED: LIDOCAINE 1% (MPF) 30 ML INJ INJ (13:30)
[2018-10-21] MEDS ORDERED: morphine 10 MG INJ IV (13:30)
[2018-10-21] MEDS: morphine 4 MG/ML VIAL IV (13:48)
[2018-10-21] MEDS: morphine 2 MG INJ IV (13:49)
[2018-10-21] MEDS ORDERED: NORepinephrine 8MG/250 ML (PMX 250 ML IV (20:30)
[2018-10-21] MEDS: ATORVASTATIN 20 MG TAB NGT (20:31)
[2018-10-21] MEDS: traZODone 50 MG TAB NGT (20:37)
[2018-10-21] MEDS: INSULIN GLARGINE [LANTus] (100 UNITS/ML) SYG SC (21:32)
[2018-10-22] MEDS: ENOXAPARIN 100 MG/ML SYG SC ×2 (00:29→10:53)
[2018-10-22] MEDS: FENTAnyl (DRIP) 1000 mcg/100mL 100 ML IV ×2 (00:49→09:11)
[2018-10-22] MEDS: NORepinephrine 8MG/250 ML (PMX 250 ML IV ×2 (00:51→07:06)
[2018-10-22] MEDS: PHENYLephrine 80 MG in DEXTROSE 5% 242 ML IV ×2 (00:54→05:26)
[2018-10-22] MEDS: INSULIN ASPART [NOVOLOG] 3 ML PEN SC ×3 (01:16→08:37)
[2018-10-22] MEDS: IPRATROPIUM (HFA) 12.9 GM INHALER INH ×3 (01:19→08:08)
[2018-10-22] MEDS: VANCOMYCIN HCL 1.25 GM in SOD CHLORIDE 0.9% 250 ML IVPB (02:59)
[2018-10-22] MEDS: PROPOFOL 100 ML IV ×2 (03:00→08:47)
[2018-10-22 03:23] LABS: WHITE BLOOD COUNT 11.8 10^3/ul (4.8-10.8)
[2018-10-22 03:23] LABS: ABNORMAL IP MESSAGE 1; HEMATOCRIT 26.7 % (42.0-52.0); HEMOGLOBIN 8.8 g/dl (14.0-18.0); MEAN CORPUSCULAR HEMOGLOBIN 32.5 pg (29.0-33.0); MEAN CORPUSCULAR VOLUME 98.5 fl (82.0-101.0); MEAN PLATELET VOLUME 9.8 fl (7.4-10.4); NUCLEATED RED BLOOD CELLS% 1.4 /100WBC (0.0-0.0); PLATELET COUNT 350 10^3/UL (140-415); POSITIVE DIFF @See below; RED BLOOD COUNT 2.71 10^6/ul (4.70-6.10); RED CELL DISTRIBUTION WIDTH 12.4 % (11.5-14.5)
[2018-10-22 03:24] LABS: ADD MAN DIFF? YES
[2018-10-22 03:42] LABS: PHOSPHORUS 4.1 mg/dl (2.5-4.9)
[2018-10-22 03:42] LABS: ANION GAP 3 (5-13); BLOOD UREA NITROGEN 31 mg/dl (7-20); CALCIUM 8.1 mg/dl (8.4-10.2); CARBON DIOXIDE 35 mmol/L (21-31); CHLORIDE 98 mmol/L (97-110); Estimated GFR > 60 mL/min (>60); GLUCOSE 185 mg/dl (70-220); MAGNESIUM 2.3 mg/dl (1.7-2.5); POTASSIUM 4.1 mmol/L (3.5-5.1); SODIUM 136 mmol/L (135-144)
[2018-10-22 03:55] LABS: ANISOCYTOSIS 1+ (0-0); BAND NEUTROPHILS #M 1.7 10^3/ul (0.0-0.6); BAND NEUTROPHILS % (M) 15 % (0-4); EOSINOPHILS % (M) 4 % (0-7); ERYTHROBLAST% (NRBC) (M) 4 % (0-0); LYMPHOCYTES #M 1.4 10^3/ul (0.8-2.9); LYMPHOCYTES % (M) 12 % (15-51); MICROCYTOSIS 1+ (0-0); MONOCYTE #M 0.5 10^3/ul (0.3-0.9); MONOCYTES % (M) 5 % (0-11); MYELOCYTES #M 0.3 10^3/ul (0.0-0.0); MYELOCYTES % (M) 3 % (0-0); PLATELET ESTIMATE NORMAL; POIKILOCYTOSIS 1+ (0-0); POLYCHROMASIA 2+ (0-0); PROMYELOCYTES #M 0.1 10^3/ul (0-0); PROMYELOCYTES % (M) 1 % (0-0); SEG NEUT #M 7.3 10^3/ul (1.6-7.5); SEGMENTED NEUTROPHILS (M) % 60 % (39-77); SMUDGE%M 6 % (0-0)
[2018-10-22] MEDS: VASOPRESSIN 60 UNIT in DEXTROSE 5% 57 ML IV (04:00)
[2018-10-22] MEDS: FUROSEMIDE 20 MG TAB NGT (05:31)
[2018-10-22] MEDS: DOCUSATE SODIUM 10 MG/ML (10ML CUP) NGT (08:32)
[2018-10-22] MEDS: CEFEPIME 2GM/50 ML (PMX) 50 ML IVPB (08:32)
[2018-10-22] MEDS: FAMOTIDINE 20 MG INJ IV (08:34)
[2018-10-22] MEDS: SENNA TAB PO (09:08)
[2018-10-24 16:56] LABS: TSH RECEPTOR ANTIBODY 5 (< OR = 16)
== END 2018-10-22 11:12 | disposition expired | DRG 207 ==
LOC: E/R 16:12 → ICU 18:27
PROC: 0BH17EZ Insertion of Endotracheal Airway into Trachea, Via Natural or Artificial Opening (ICD-10-PCS; principal; 2018-10-13)
PROC: 5A1955Z Respiratory Ventilation, Greater than 96 Consecutive Hours (ICD-10-PCS; 2018-10-13)
PROC: 06HY33Z Insertion of Infusion Device into Lower Vein, Percutaneous Approach (ICD-10-PCS; 2018-10-13)
PROC: 0W9930Z Drainage of Right Pleural Cavity with Drainage Device, Percutaneous Approach (ICD-10-PCS; 2018-10-13)
PROC: 0W9930Z Drainage of Right Pleural Cavity with Drainage Device, Percutaneous Approach (ICD-10-PCS; 2018-10-16)
PROC: 0WP930Z Removal of Drainage Device from Right Pleural Cavity, Percutaneous Approach (ICD-10-PCS; 2018-10-16)
PROC: 0W9930Z Drainage of Right Pleural Cavity with Drainage Device, Percutaneous Approach (ICD-10-PCS; 2018-10-21)
DX: J96.02 Acute respiratory failure with hypercapnia (principal); A41.9 Sepsis, unspecified organism; R65.21 Severe sepsis with septic shock; C92.10 Chronic myeloid leukemia, BCR/ABL-positive, not having achieved remission; J95.812 Postprocedural air leak; J93.9 Pneumothorax, unspecified; E66.01 Morbid (severe) obesity due to excess calories; F17.200 Nicotine dependence, unspecified, uncomplicated; G47.33 Obstructive sleep apnea (adult) (pediatric); I27.20 Pulmonary hypertension, unspecified; I48.0 Paroxysmal atrial fibrillation; I50.9 Heart failure, unspecified; J96.01 Acute respiratory failure with hypoxia; Z66 Do not resuscitate; T81.82XA Emphysema (subcutaneous) resulting from a procedure, initial encounter; Y83.8 Other surgical procedures as the cause of abnormal reaction of the patient, or of later complication, without mention of misadventure at the time of the procedure; Z68.31 Body mass index [BMI] 31.0-31.9, adult; Z98.890 Other specified postprocedural states; Z79.01 Long term (current) use of anticoagulants; Z79.899 Other long term (current) drug therapy
CPT/HCPCS: 31500; 36415; 36600; 70450; 70490; 71045; 71250; 80048; 80053; 80202; 81001; 81003; 82550; 82553; 82803; 82962; 83036; 83605; 83735; 83880; 84100; 84145; 84235; 84439; 84484; 85025; 85610; 85730; 87040-91; 87070; 87081; 87086; 93005; 93306; 94002; 94003; 94640; 94644; 94660; 94664; 94770; 96365; 96375; 96376; 99291-25